=== PATIENT | female | born 1970 | race Caucasian/White ===

== ENCOUNTER → 2018-06-01 15:01 | Outpatient (CLI) | payer BC, SELFPAY ==
--- NOTE | 2018-06-01 15:03 | BI_ITS ---
MAMMOGRAPHY - BILATERAL SCREENING REASON FOR EXAM: Female, 48 years old. Routine annual screening examination. PERTINENT HISTORY: Non-contributory. Five-year history of a possible right breast lump. TECHNIQUE: Digital bilateral breast donna (3D mammographic acquisition) in the CC and MLO projections. 2-D mediolateral oblique (MLO) and craniocaudad (CC) views of both breasts were obtained. CAD: Full Field Digital Mammography with Computer Added Detection was performed. COMPARISON: Comparison is made with prior study dated September 25, 2016 and September 24, 2015. FINDINGS: Breast Composition: There are scattered areas of fibroglandular density. There are no dominant masses or suspicious calcifications. Stable appearance of the bilateral axial lymph nodes. No other significant abnormalities are identified. There has been no significant change since the prior study. BI/SCREENING MAMM (CAD), BILAT IMPRESSION: Stable bilateral screening mammogram. Yearly follow-up mammogram recommended. (A) ASSESSMENT CATEGORY: BIRADS Category 2: Benign. A letter regarding these results will be sent to the patient by the facility within 30 days. Approximately 10% of breast cancers are not detected by mammography. A normal mammogram should not delay biopsy of a clinically suspicious abnormality. [id number] Electronically Signed: Antoni Benites MD at 8:14 EDT Tel [phone], Service support ,
== END ==
PROVIDERS: Family Provider Internal Medicine; PCP Internal Medicine; Referring Provider Internal Medicine; Visit Provider Internal Medicine
DX: Z12.31 Encounter for screening mammogram for malignant neoplasm of breast (principal)
CPT/HCPCS: 77063; 77067

== ENCOUNTER 2019-10-17 09:25 | Observation (INO) | payer BC, SELFPAY ==
[2019-10-17] VITALS (7 sets, daily range): BP systolic 134–167; BP diastolic 80–104; PULSE 72–87; RESP 14–18; TEMP 36.2–36.9; O2SAT 93–98; BMI 46.0
--- NOTE | 2019-10-17 09:43 | ED.DCSUM_ITS ---
History of Present Illness Chief Complaint: Abd Pain Informant: Patient Narrative: Patient states for the past 3 weeks she has had a left flank pain that is gradually involved her abdomen. She notes mostly left-sided abdominal pain but states the whole abdomen hurts. When asked to describe the pain she states big fucking pain and does not wish me to palpate the abdomen. She denies any fevers. She has had vomiting today. She notes her urine was more yellow yesterday than to be expected. She notes she has very irregular bowel movements but no history of diverticulitis or colitis. No history of small bowel obstruction. She has a history of kidney stones. Back pain is constant and does not exhibit radicular symptoms. No midline pain. Past Medical History - Allergies and Home Meds Allergies/Adverse Reactions: Allergies niacin Allergy (Verified 10/17/19 09:28) Hives Surgical History: hysterectomy Smoking Status: Former smoker Review of Systems General: Denies: Chills, Fever, Sweats Eyes: Denies: Visual changes - bilaterally, Diplopia ENT: Denies: Rhinorrhea, Sore throat Cardiovascular: Denies: Chest pain, Palpitations Respiratory: Denies: Dyspnea, Cough, Dyspnea on exertion Gastrointestinal: Reports: Abdominal pain, Nausea, Vomiting, Constipation. Denies: Diarrhea, Melena, Hematochezia Genitourinary: Denies: Dysuria, Hematuria, Frequency Musculoskeletal: Reports: Back pain. Denies: Extremity Pain Skin: Denies: Rash, Wounds Neurological: Denies: Headache, Weakness, Numbness Physical Exam Vital Signs/Narrative: Vital Signs Temp Pulse Resp BP Pulse Ox 10/17/19 09:26 97.2 F L 73 18 165/88 H 98 Inital Vital Signs reviewed: Yes General: Well nourished, Well developed, No Acute Distress Head: Normocephalic, Atraumatic Eyes: Perrl, EOMI ENT: Moist mucous membranes, No rhinorrhea Neck: Supple, Nontender Cardiovascular: Regular rate, Regular rhythm, No murmurs Respiratory: No distress, CTA bilaterally, Chest nontender Abdomen: Soft, Nondistended, Normal bowel sounds, Tender, Guarding Back: CVA tenderness Extremities: Nontender, No edema Skin: Normal color, No rash Neurological: Alert, Oriented x3, Cranial nerves II-XII grossly intact, Normal Strength, Normal Sensation Psychological: Normal affect, Normal Mood Diagnostic/Tx/Re-eval - Medical Decision Making Patient received pain and nausea medication. White count returns at 11.9. Urinalysis 25-50 red cells 1+ bacteria and calcium oxalate crystals noted. CT demonstrates a proximal 8 mm left ureteral stone. I spoke with on-call urology and the plan is admission ED Disposition - Plan for ED Patient: Disposition: Acute [facility] Diagnosis: Left ureteral calculus
[2019-10-17] MEDS: 0.9% Normal Saline 1,000 ML 1000 ML IV (09:57)
[2019-10-17] MEDS: Morphine 4 MG/ML Syringe IV (09:57)
[2019-10-17] MEDS: Ondansetron 4 MG/2 ML Vial IV ×2 (09:58→21:16)
[2019-10-17 10:03] LABS: Absolute Neutrophil Count 9.4 X10^3/uL (2.0-7.7); Basophil# 0.03 X10^3/uL; Basophil% 0.3 % (0-1); Eosinophil# 0.14 X10^3/uL; Eosinophils% 1.2 % (0-5); Hematocrit 47.6 % (37-47); Hemoglobin 16.1 g/dL (12.0-15.0); Lymphocyte % 13.4 % (19-41); Mean Corp Hgb Conc 33.8 g/dL (32-36); Mean Corpuscular Hgb 29.4 pg (27.0-32.0); Monocyte# 0.66 X10^3/uL; Monocyte% 5.5 % (0-10); NRBC Flagged by Analyzer 0 % (0-5); Neutrophil # 9.43 X10^3/uL (2.7-7.7); Neutrophil % 79.1 % (47-70); Platelet Count 296 K/mm3 (150-450); RBC Distribution Width CV 12.4 % (11.6-14.6); RBC Distribution Width SD 39.5 fl (35.1-43.9); Red Blood Count 5.47 M/mm3 (4.2-5.4); White Blood Count 11.9 K/mm3 (4.4-11.0)
[2019-10-17 10:44] LABS: AST(SGOT) 31 U/L (15-37); Alanine Aminotransfer ALT/SGPT 60 U/L (13-56); Albumin, Serum 3.9 g/dL (3.2-5.0); Alkaline Phosphatase 103 U/L (45-117); BUN 17 mg/dL (7-18); Calcium,Total 9.5 mg/dL (8.5-10.1); Chloride 107 mmol/L (98-107); EST Glomerular Filtration Rate 71 mL/min (>60); Est Glom Filt Rate - Afr Amer 86 mL/min (>60); Estimated Creatinine Clearance 61.86 ml/min; Globulin 3.9 g/dL (2.2-4.2); Glucose 166 mg/dL (74-106); Lipase 99 U/L (73-393); Potassium 3.8 mmol/L (3.5-5.1); Protein, Total 7.8 g/dL (6.4-8.2); Sodium Level 140 mmol/L (136-145)
[2019-10-17 10:45] LABS: Anion Gap 5 (5-15)
--- NOTE | 2019-10-17 11:18 | CT_ITS ---
STUDY: CT ABDOMEN AND PELVIS WITHOUT CONTRAST REASON FOR EXAM: Female, 49 years old. LEFT FLANK PAIN RADIATION DOSAGE (If Supplied By Facility): CTDIvol = ( 24.18 ) mGy, DLP = ( 1262.47 ) mGycm TECHNIQUE: Transaxial images were obtained from the dome of the diaphragm to the symphysis pubis without oral contrast, and without intravenous contrast. Sagittal and coronal images were reconstructed. Individualized dose optimization techniques were used for this CT. COMPARISON: Comparison is made with prior study dated March 07, 2013. FINDINGS: The visualized lung bases are unremarkable. The visualized portions of the heart are within normal limits. There is decreased attenuation of the liver consistent with steatosis. Hepatomegaly. Normal gallbladder and extrahepatic biliary system. Normal spleen. Normal pancreas. There is mild hyperplasia of the left adrenal gland. Normal right kidney. Mild to moderate degree of left hydronephrosis due to a 7.5 mm calculus at the proximal aspect of the left ureter. Normal visualized stomach. Is evidence of a surgical anastomosis in the mid lower small bowel loops. There are multiple scattered diverticula consistent with diverticulosis. The appendix is visualized and appears normal. There is scattered atherosclerotic calcification of the abdominal aorta, without a demonstrated aneurysm. Normal inferior vena cava. There is borderline retroperitoneal lymphadenopathy with enlarged nodes no greater than 10mm in the short axis diameter. Normal urinary bladder. There is absence of the uterus consistent with a prior hysterectomy. Normal abdominal wall. Normal osseous structures. CT/Abdomen/Pelvis without Cont IMPRESSION: 7.5 mm conquest in the proximal portion of the left ureter causing mild degree of left hydronephrosis. Electronically Signed: Antoni Benites, at 12:32 EDT , Service support ,
[2019-10-17 11:25] LABS: Color, Urine Yellow (Yellow); Glucose, Dipstick Normal (Normal); Ketone-Dipstick 5 mg/dl (Negative); Leukocyte Esterase-Dipstick 25 /ul (Negative); Nitrite-Dipstick Negative (Negative); Occult Blood-Urine 250 /ul (Negative); Protein-Dipstick 100 mg/dl (Negative); Urine Bilirubin Dipstick Negative (Negative); Urine Clarity Sl. Cloudy (Clear); Urine Urobilinogen 1 mg/dl (Normal)
[2019-10-17 11:37] LABS: Bacteria 1+ /hpf (None Seen); Calcium Oxalate Crystals Ur 1+ /hpf (<or=2+); Mucous, Urine RARE /hpf (<or=2+); Red Blood Cells-Urine 25-50 SEEN /hpf (0-5); Squamous Epithelial Cells - UA 0-5 SEEN /hpf (5-10); White Blood Cells 0-5 SEEN /hpf (0-5)
--- NOTE | 2019-10-17 13:44 | NURSING ---
[address] P[address] COBB [id number] COBB RETURNED CALL
--- NOTE | 2019-10-17 13:55 | NURSING ---
MED SURG OBS REZA LEFT URETEROLITHIASIS
[2019-10-17 16:35] LABS: Bedside Glucose 155 mg/dL (70-110)
[2019-10-17] MEDS: 0.9% Saline Lock 10 ML Syringe IV ×2 (17:22→21:16)
[2019-10-17] MEDS: metFORMIN HCl 500 MG Tablet PO (17:22)
[2019-10-17] MEDS: Cefazolin 1 GM/50 ML BAG IV ×2 (17:22→22:32)
--- NOTE | 2019-10-17 17:48 | PCM.HP.STD ---
Problem List (1) Left ureteral calculus Status: Acute History of Present Illness Date of Admission: 10/17/19 Chief Complaint: left flank pain The patient is a 49 year old F with a remote history of nephrolithiasis. She began to have significant low back pain approximately 3 weeks ago. She reports that Wednesday, which was 3 days ago, she had significant left-sided flank discomfort. She thought it was related to her constipation. Eventually the pain dissipated. It was not associated with fever or chills, hematuria nausea or vomiting at that time. She was pain-free for [address] her [address] into work this morning she developed severe pain and turned around and drove home. Her family brought her to the emergency room. On the way to the emergency room she was hot and cold with chills. She was diagnosed with a proximal left ureteral calculus with hydronephrosis by CT scan in the emergency room. Past Medical History Medical History: Medical History (Last Reviewed 10/17/19 @ 17:[address] Snehal Fulton MD) Type 2 diabetes mellitus (Chronic) E11.9 Allergies niacin Allergy (Verified 10/17/19 09:28) Hives Home Medications: Ambulatory Orders Medication Instructions Recorded Atorvastatin Calcium [Lipitor] 20 mg PO QHS 10/17/19 Fenofibrate,Micronized 134 mg PO DAILY 10/17/19 [Fenofibrate] Levothyroxine Sodium [Synthroid] 25 mcg PO DAILY 10/17/19 Levothyroxine Sodium [Synthroid] 200 mcg PO DAILY 10/17/19 Lisinopril 20 mg PO DAILY 10/17/19 Metformin HCl 500 mg PO BID 10/17/19 Surgical History: hysterectomy Smoking Status: Former smoker Review of Systems Constitutional: Reports: Chills Eyes: Denies: Vision Change HEENT: Denies: Visual Changes Cardiovascular: Denies: Chest Pain Respiratory: Denies: Shortness of Breath Gastrointestinal: Reports: Abdominal Pain, Constipation, Nausea, Vomiting Genitourinary: Denies: Dysuria, Urgency Musculoskeletal: Denies: Muscle pain Skin: Denies: Rash VTE Information - Inpt Only VTE Present on Admission: Yes VTE Mechan Device Prophylaxis: SCD's VTE Pharm Prophylaxis ordered?: No Reason prophylaxis not ordered:: Treatment Not Indicated Patient Problems: Active and Suspected Problems Left ureteral calculus (Acute) - Physical Exam Vitals/I&O's: Vital Signs Temp Pulse Resp BP Pulse Ox 98.2 F 75 18 137/80 H 96 10/17/19 15:02 10/17/19 15:02 10/17/19 15:02 10/17/19 15:02 10/17/19 15:02 Oxygen Delivery Method Room Air Weight: 117.8 kg Body Mass Index (BMI) 46.0 Intake and Output for Last 24 Hours 10/15/19 10/16/19 10/17/19 23:59 23:59 23:59 Intake Total 1000 / 1000 Balance 1000 / 1000 General: Alert, Oriented x3, Cooperative, No apparent distress HEENT: Atraumatic, Normocephalic Oral: Moist Mucosa Neck: Supple Lungs: Normal air movement Cardiovascular: Regular rate Abdomen: Soft, Non-Distended Skin: No rashes Musculoskeletal: No Muscle Wasting Neurological: Cranial nerves II-XII grossly intact Psych/Mental Status: Normal Affect Laboratory Results 10/17/19 09:50: WBC 11.9 H, RBC 5.47 H, Hgb 16.1 H, Hct 47.6 H, MCV 87.0, MCH 29.4, MCHC 33.8, RDW Std Deviation 39.5, RDW Coeff of Doug 12.4, Plt Count 296, MPV 9.0, Immature Gran % (Auto) 0.500, Neut % (Auto) 79.1 H, Lymph % (Auto) 13.4 L, [place] % (Auto) 5.5, Eos % (Auto) 1.2, Baso % (Auto) 0.3, Absolute Neuts (auto) 9.4 H, Absolute Lymphs (auto) 1.60, Nucleated RBC % 0 10/17/19 09:50: Sodium 140, Potassium 3.8, Chloride 107, Carbon Dioxide 28.0, Anion Gap 5, BUN 17, Creatinine 0.90, Estim Creat Clear Calc 61.86, Est GFR (MDRD) Af Amer 86, Est GFR (MDRD) Non-Af 71, BUN/Creatinine Ratio 19.0, Glucose 166 H, Calcium 9.5, Total Bilirubin 0.90, AST 31, ALT 60 H, Alkaline Phosphatase 103, Total Protein 7.8, Albumin 3.9, Globulin 3.9, Albumin/Globulin Ratio 1.0, Lipase 99 10/17/19 11:06: Urine Color Yellow, Urine Clarity Sl. Cloudy, Urine pH 6.0, Ur Specific Orr 1.020, Urine Protein 100 H, Urine Glucose (UA) Normal, Urine Ketones 5 H, Urine Occult Blood 250 H, Urine Nitrite Negative, Urine Bilirubin Negative, Urine Urobilinogen 1 H, Ur Leukocyte Esterase 25 H, Urine RBC 25-50 SEEN, Urine WBC 0-5 SEEN, Ur Squamous Epith Cells 0-5 SEEN, Calcium Oxalate Crystal 1+, Urine Bacteria 1+, Urine Mucus RARE 10/17/19 16:28: POC Glucose 155 H Current Medications Hydrocodone Bitart/Acetaminophen (Prentice 5mg-325mg) 1 - 2 tablet PO Q6H PRN PRN PRN Reason: Pain Score 1-5/10 Atorvastatin Calcium (Lipitor) 20 mg PO QHS [facility] Sodium Chloride () 250 mls @ 15 mls/hr IV .[id number] PRN PRN Reason: Saline Flush Sodium Chloride () 250 mls @ 15 mls/hr IV .[id number] PRN PRN Reason: Additional IVPB Infusion Cefazolin Sodium () 1 gm in 50 mls @ 150 mls/hr IV Q8 [facility] Last Admin: 10/17/19 17:22 Dose: 150 mls/hr Documented by: Ketorolac Tromethamine (Toradol (Bkc)) 15 mg IV Q6H PRN PRN PRN Reason: Pain Score 1-10/10 Stop: 10/19/19 15:19 Levothyroxine Sodium (Synthroid) 25 mcg PO DAILY@0600 [facility] Levothyroxine Sodium (Synthroid) 200 mcg PO DAILY@0600 [facility] Lisinopril (Zestril) 20 mg PO DAILY [facility] Metformin HCl (Glucophage) [facility] Last Admin: 10/17/19 17:22 Dose: 500 mg Documented by: Morphine Sulfate () 3 mg IV Q3H PRN PRN PRN Reason: Pain Score 6-10/10 Ondansetron HCl (Zofran) 4 mg IV Q8H PRN PRN Reason: Nausea Sodium Chloride () 10 - 40 ml IV UD PRN PRN Reason: SALINE FLUSH Last Admin: 10/17/19 17:22 Dose: 10 ml Documented by: Assessment/Plan All Active Problems Left ureteral calculus (Acute) For cystoscopy and left ureteral stent insertion tomorrow We will proceed with extracorporal shockwave lithotripsy as an outpatient for definitive stone management Continue supportive care and pain management
[2019-10-17] MEDS: Morphine 4 MG/ML Syringe 3 MG IV (21:17)
[2019-10-17] MEDS: Atorvastatin Calcium 20 MG Tablet PO (21:23)
[2019-10-17] MEDS: Lisinopril 20 MG Tablet PO (21:37)
[2019-10-17 21:45] LABS: Bedside Glucose 155 mg/dL (70-110)
[2019-10-18] VITALS (10 sets, daily range): BP systolic 97–179; BP diastolic 68–97; PULSE 68–77; RESP 16–18; TEMP 36.5–37.1; O2SAT 92–98; BMI 46.0
[2019-10-18] MEDS: Cefazolin 1 GM/50 ML BAG IV ×2 (05:46→13:27)
--- NOTE | 2019-10-18 06:00 | EKG12_ITS ---
Test Reason : AM EKG Blood Pressure : / mmHG Vent. Rate : 071 BPM Atrial Rate : 071 BPM P-R Int : 172 ms QRS Dur : 088 ms QT Int : 398 ms P-R-T Axes : 024 051 066 degrees QTc Int : 432 ms Normal sinus rhythm Low voltage QRS Borderline ECG When compared with ECG of 09-FEB-2013 22:29, No significant change was found Confirmed by EMILIA LUU ([id number]), pharmacy technician infusion JIMMIE RODRIGUEZ ([id number]) on 10/19/2019 7:39:17 AM Referred By: REZA Confirmed By:EMILIA LUU
[2019-10-18 06:01] LABS: Bedside Glucose 127 mg/dL (70-110)
[2019-10-18] MEDS: Lactated Ringers 1,000 ML 100 ML IV (07:14)
[2019-10-18 07:20] LABS: Thyroid Stim Hormone (TSH) 2.24 uIU/mL (0.358-3.74)
--- NOTE | 2019-10-18 07:54 | OP.PCM_ITS ---
Problem List (1) Left ureteral calculus Status: Acute Report of Operation Date of Procedure: 10/18/19 Pre-Operative Diagnosis: left ureteral calculus Post-Operative Diagnosis: same Surgery/Procedure Performed:: cystoscopy and left ureteral stent insertion Type of Anesthesia:: MAC Description of Procedure: The patient is a 49-year-old female who presented to the emergency room with uncontrolled left flank pain. A proximal large ureteral calculus with obstruction was identified on CT scan. She now presents for insertion of a left ureteral stent. Informed consent was obtained. Patient was taken to the operating room and placed on the operating room table. Anesthesia monitored the head, neck, airway, IV access and vital signs throughout the case. Once anesthesia was appropriately administered the patient was placed into dorsal lithotomy position was prepped and draped in usual sterile fashion. The cystoscope was inserted through the urethra under direct visualization into the urinary bladder. The bladder mucosa was visualized in its entirety and there were no masses areas of ulceration, erythema or foreign body. The left ureteral orifice was identified and intubated with a 0.035 Glidewire which curled within the renal pelvis visualized on fluoroscopy. A 6 Marshallese 24 cm double-J stent was then inserted over the Glidewire without difficulty. A good curl was achieved within the renal pelvis as well as the urinary bladder. Urine was seen extruding from the ureteral stent. The patient's bladder was then emptied and the cystoscope was removed. She was awakened and taken to the recovery room in good condition. There were no complications during the procedure. Grafts/Implants Used: 6x24 JJ stent - Complications none - Admit VTE Documentation VTE Present on Admission: Yes VTE Mechan Device Prophylaxis: SCD's VTE Pharm Prophylaxis ordered?: No Reason prophylaxis not ordered:: Treatment Not Indicated
--- NOTE | 2019-10-18 07:59 | DCINST_ITS ---
Discharge Diet: Carb Control Diet Discharge Activity: Return to Normal Activity, May not drive while taking narcotic pain medications. May resume sexual activity in: 2 weeks Call your doctor if you observe: Fever of 101 or Higher, Inability to urinate, Inability to have a bowel movement, Uncontrolled pain Allergies/Adverse Reactions: Allergies niacin Allergy (Verified 10/17/19 09:28) Hives Medications to take at Discharge Atorvastatin Calcium [Lipitor] 20 mg PO QHS 10/17/19 Fenofibrate,Micronized [Fenofibrate] 134 mg PO DAILY 10/17/19 Levothyroxine Sodium [Synthroid] 25 mcg PO DAILY 10/17/19 Levothyroxine Sodium [Synthroid] 200 mcg PO DAILY 10/17/19 RX: Lisinopril 20 mg PO DAILY 10/17/19 RX: Metformin HCl 500 mg PO BID 10/17/19 Primary Care Physician: Citlalli Cox DO [Primary Care Provider] - Test Results: Test results from this visit will be discussed in further detail at your follow- up appointment, if applicable. Please Follow Up With: Snehal Fulton MD When: call office for instructions Proposed Discharge Date: 10/18/19
[2019-10-18] MEDS: Lidocaine Jelly 2% 20 ML Syringe (URO-JET) 20 APPLIC (08:12)
[2019-10-18 08:32] LABS: Hemoglobin A1c 6.6 % (4.2-6.3)
[2019-10-18 08:45] LABS: Bedside Glucose 111 mg/dL (70-110)
[2019-10-18] MEDS: Phenazopyridine 95 MG Tablet 190 MG PO ×2 (09:07)
[2019-10-18] MEDS: metFORMIN HCl 500 MG Tablet PO (10:04)
[2019-10-18] MEDS: 0.9% Saline Lock 10 ML Syringe IV (10:04)
[2019-10-18] MEDS: Morphine 4 MG/ML Syringe 3 MG IV (10:04)
--- NOTE | 2019-10-18 10:10 | NURSING ---
Pt arrived from PACU, she is assisted immediately to the bathroom and voids. She is asking multiple questions all at the same time. Wanting to eat, wanting to go home will this burn when she goes home. She is notified that she can order her diet and its a diabetic controlled diet. She responds what's that mean? Nurse educates pt this these are the choices of food she should be eating. She is medicated with 3 mg of morphine for pain. When nurse returns she is laying in bed eating. She is advised to sit up to eat she states she is quiet comfortably eating in the laying position.
[2019-10-18] MEDS: Insulin Lispro 100 UNIT/ML INSULN.PEN SC (11:23)
[2019-10-18 11:36] LABS: Bedside Glucose 172 mg/dL (70-110)
[2019-10-18] MEDS: HYDROcodone Bitartrate/Apap 5/325 Tablet PO (12:20)
== END 2019-10-18 15:47 | disposition home or self-care (01) ==
LOC: ED 10:37 → MS3 15:33
PROVIDERS: Anesthesiology; Admitting Provider Urology; Emergency Provider Emergency Medicine; PCP Internal Medicine; Visit Provider Urology
PROC: 0TJ98ZZ Inspection of Ureter, Via Natural or Artificial Opening Endoscopic (ICD-10-PCS; CPT 52352; principal; 2019-10-18 07:50)
DX: N13.2 Hydronephrosis with renal and ureteral calculous obstruction (principal); Z87.442 Personal history of urinary calculi; Z79.899 Other long term (current) drug therapy; Z87.891 Personal history of nicotine dependence; E11.9 Type 2 diabetes mellitus without complications; Z79.84 Long term (current) use of oral hypoglycemic drugs; I10 Essential (primary) hypertension
CPT/HCPCS: 00910; 52332; 36415; 74176; 76000; 80053; 81001; 82962; 83036; 83690; 84443; 85025; 87086; 87088; 93005; 96365; 96366; 96375; 96376; 99218; 99282; J7030; J7050; J7120; A4216; C2617; G0378; J2405

== ENCOUNTER → 2019-10-25 11:17 | Outpatient (CLI) | payer BC, SELFPAY ==
[2019-10-18 06:43] VITALS: BMI 46.0
--- NOTE | 2019-10-25 11:24 | US_ITS ---
STUDY: RENAL ULTRASOUND - COMPLETE REASON FOR EXAM: Female, 49 years old. URETERAL STONE TECHNIQUE: Ultrasound evaluation of the kidneys was performed with real-time and static stanley-scale imaging. COMPARISON: None. FINDINGS: RIGHT KIDNEY: Normal location of the right kidney, which is normal in size. The right kidney measures 13.7 cm x 6.5 cm x 6.3 cm. There is a normal cortex of the right kidney. The renal cortex measures 2.0 cm. There is no right renal mass or cyst. There is a 7 mm x 8 mm x 6 mm calculus in the midpole. There is no right hydronephrosis. DISTAL RIGHT URETER: There is non-visualization of the distal right ureter. There is no demonstrated right ureterovesical junction calculus. There is a visualized right ureteral jet. LEFT KIDNEY: Normal location of the left kidney, which is normal in size. The left kidney measures 11.9 cm x 5 cm x 6.1 cm. There is a normal cortex of the left kidney. The renal cortex measures 2.0 cm. There is no left renal mass or cyst. Questionable 1 cm x 0.8 cm x 0.8 cm calculus in the lower pole. There is no left hydronephrosis. DISTAL LEFT URETER: There is non-visualization of the distal left ureter. There is no demonstrated left ureterovesical junction calculus. There is no demonstrated left ureteral jet. BLADDER: The bladder is not adequately distended for assessment. US/Kidney and Bladder IMPRESSION: Small bilateral intrarenal calculi. Electronically Signed: Antoni Benites, at 12:35 EDT , Service support ,
== END ==
PROVIDERS: PCP Internal Medicine; Referring Provider Urology; Visit Provider Urology
DX: N20.1 Calculus of ureter (principal)
CPT/HCPCS: 76770

== ENCOUNTER 2019-10-27 07:18 | Day surgery (SDC) | payer BC, SELFPAY ==
[2019-10-18 06:43] VITALS: BMI 46.0
--- NOTE | 2019-10-25 12:30 | RAD_ITS ---
STUDY: X-RAY - ABDOMEN/PELVIS REASON FOR EXAM: Female, 49 years old. Known kidney stone on left side; pre op slew TECHNIQUE: Single AP view of the abdomen / pelvis. COMPARISON: None. FINDINGS: Normal visualized lung bases. There is an unremarkable bowel gas pattern. A left-sided double-J stent catheter is seen. There is an 8.8 mm calculus in the proximal portion of the left ureter. Normal soft tissue structures. Normal visualized osseous structures. RAD/Abdomen Single View IMPRESSION: A left-sided double-J stent catheter is seen. There is a 8.8 mm calculus in the proximal left ureter. Electronically Signed: Antoni Benites, at 13:14 EDT , Service support ,
[2019-10-27] VITALS (8 sets, daily range): BP systolic 136–159; BP diastolic 78–98; PULSE 65–85; RESP 14–16; TEMP 36.3–36.7; O2SAT 93–97; BMI 44.9
[2019-10-27] MEDS: Lactated Ringers 1,000 ML 100 ML IV ×2 (07:52→10:35)
[2019-10-27 08:36] LABS: Bedside Glucose 133 mg/dL (70-110)
[2019-10-27] MEDS: Cefazolin 2 GM in 0.9% Normal Saline 100 ML IV (09:04)
--- NOTE | 2019-10-27 10:28 | PCM.OPRPT ---
Problem List (1) Left ureteral calculus Status: Acute Report of Operation Date of Procedure: 10/27/19 Pre-Operative Diagnosis: left ureteral calculus Post-Operative Diagnosis: same Surgery/Procedure Performed:: left ureteral extracorporeal shockwave lithotripsy Type of Anesthesia:: General Description of Procedure: The patient is a 49-year-old female with a left proximal ureteral calculus. She underwent a cystoscopy and left ureteral stent for obstruction and now presents for definitive treatment of her stone. All risks, benefits and alternatives were discussed. Informed consent was obtained. The patient was taken to the operating room and placed on the operating room table. Anesthesia monitored the head, neck, airway, IV access and vital signs throughout the case. Once anesthesia was appropriately administered, the patient was aligned with the lithotripter. The stone was easily identified. It was broken into small fragments and the stone was no longer visible. There were no complications during the procedure. She was then awakened and taken to the recovery room in good condition. Grafts/Implants Used: none - Complications none - Admit VTE Documentation VTE Present on Admission: Yes VTE Mechan Device Prophylaxis: SCD's VTE Pharm Prophylaxis ordered?: No Reason prophylaxis not ordered:: Treatment Not Indicated
--- NOTE | 2019-10-27 10:35 | DCINST_ITS ---
Discharge Diet: Carb Control Diet Discharge Activity: May not drive while taking narcotic pain medications. May resume sexual activity in: 2 weeks Call your doctor if you observe: Fever of 101 or Higher, Inability to urinate, Inability to have a bowel movement Allergies/Adverse Reactions: Allergies niacin Allergy (Verified 10/27/19 07:30) Hives Medications to take at Discharge Atorvastatin Calcium [Lipitor] 20 mg PO QHS 10/17/19 Fenofibrate,Micronized [Fenofibrate] 134 mg PO DAILY 10/17/19 Levothyroxine Sodium [Synthroid] 25 mcg PO DAILY 10/17/19 Levothyroxine Sodium [Synthroid] 200 mcg PO DAILY 10/17/19 Lisinopril 20 mg PO DAILY 10/17/19 Metformin HCl 500 mg PO BID 10/17/19 Cephalexin [Keflex] 500 mg PO Q12 3 Days #6 cap 10/27/19 The following prescriptions were given: Cephalexin [Keflex] 500 mg PO Q12 3 Days #6 cap Transmission Status: Pending to [facility] Primary Care Physician: Citlalli Cox DO [Primary Care Provider] - Test Results: Test results from this visit will be discussed in further detail at your follow- up appointment, if applicable. Please Follow Up With: Snehal Fulton MD When: call office for appt Proposed Discharge Date: 10/27/19
[2019-10-27 10:46] LABS: Bedside Glucose 121 mg/dL (70-110)
--- NOTE | 2019-11-20 10:35 | PCM.HP.STD ---
Problem List (1) Left ureteral calculus Status: Acute History of Present Illness Date of Admission: 10/27/19 Chief Complaint: left flank pain The patient is a 49 year old F with an indwelling left ureteral stent secondary to an obstructing left ureteral calculus. She now presents for definitive management of her stone with extracorporal shockwave lithotripsy. She currently has no evidence of infection including fever, chills, nausea or vomiting. She does have discomfort secondary to her stent. Informed consent was obtained following a discussion of risks benefits and alternatives. Past Medical History Past Medical History (Chronic Problems): Chronic Problems (Last Reviewed 10/17/19 @ 17:[address] Snehal Fulton MD) Type 2 diabetes mellitus (Chronic) Medical History: Medical History (Last Reviewed 11/20/19 @ 10:[address] Snehal Fulton MD) Type 2 diabetes mellitus (Chronic) E11.9 Allergies niacin Allergy (Verified 10/27/19 07:30) Hives Home Medications: Ambulatory Orders Medication Instructions Recorded Atorvastatin Calcium [Lipitor] 20 mg PO QHS 10/17/19 Fenofibrate,Micronized 134 mg PO DAILY 10/17/19 [Fenofibrate] Levothyroxine Sodium [Synthroid] 25 mcg PO DAILY 10/17/19 Levothyroxine Sodium [Synthroid] 200 mcg PO DAILY 10/17/19 Lisinopril 20 mg PO DAILY 10/17/19 Metformin HCl 500 mg PO BID 10/17/19 Surgical History: hysterectomy Smoking Status: Former smoker Tobacco Use: Non-smoker Review of Systems Constitutional: Denies: Anorexia, Fever Eyes: Denies: Vision Change HEENT: Denies: Difficulty Swallowing, Visual Changes Cardiovascular: Denies: Chest Pain, Chest Pressure Respiratory: Denies: Cough, Shortness of Breath Gastrointestinal: Reports: Abdominal Pain. Denies: Nausea, Vomiting Genitourinary: Reports: Frequency, Hematuria, Urgency. Denies: Dysuria Gynecological: Denies: Breast symptoms Musculoskeletal: Denies: Muscle pain Skin: Denies: Wounds Neurological: Denies: Difficulty swallowing Endocrine: Denies: Change in Body Habitus VTE Information - Inpt Only VTE Present on Admission: Yes VTE Mechan Device Prophylaxis: SCD's VTE Pharm Prophylaxis ordered?: No Reason prophylaxis not ordered:: Treatment Not Indicated - Physical Exam Vitals/I&O's: Vital Signs Temp Pulse Resp BP Pulse Ox 97.3 F L 76 16 139/78 H 94 10/27/19 12:15 10/27/19 12:15 10/27/19 12:15 10/27/19 12:15 10/27/19 12:15 Oxygen Flow Rate (L/min) 2 Oxygen Delivery Method Room Air Weight: 114.9 kg Body Mass Index (BMI) 44.9 Finger Stick Blood Glucose 121 General: Alert, Oriented x3, Cooperative, No apparent distress HEENT: Atraumatic, Normocephalic Oral: Moist Mucosa Neck: Supple, Trachea Midline Lungs: Clear to auscultation, Normal air movement Cardiovascular: Regular rate, Regular Rhythm Abdomen: Soft, Non Tender, Non-Distended Extremities: No clubbing Skin: No rashes Musculoskeletal: No Muscle Wasting Neurological: Cranial nerves II-XII grossly intact Psych/Mental Status: Normal Affect Assessment/Plan All Active Problems (Last Reviewed 10/17/19 @ 17:[address] Snehal Fulton MD) Left ureteral calculus (Acute) Proceed with left ureteral extracorporal shockwave lithotripsy antibiotics and supportive care Stent out in the office after KUB
== END 2019-10-27 12:16 | disposition home or self-care (01) ==
LOC: SDC 07:19 → AC 07:21
PROVIDERS: PCP Internal Medicine; Referring Provider Urology; Visit Provider Urology
PROC: (CPT 50590; principal; 2019-10-27 08:45)
DX: N20.1 Calculus of ureter (principal); I10 Essential (primary) hypertension; E78.00 Pure hypercholesterolemia, unspecified; E06.9 Thyroiditis, unspecified; E11.9 Type 2 diabetes mellitus without complications; Z79.84 Long term (current) use of oral hypoglycemic drugs; Z79.899 Other long term (current) drug therapy; Z87.891 Personal history of nicotine dependence
CPT/HCPCS: 50590; 74018; 82962; J7120; J2405

== ENCOUNTER → 2019-10-30 12:03 | Outpatient (CLI) | payer BC, SELFPAY ==
[2019-10-27 07:37] VITALS: BMI 44.9
--- NOTE | 2019-10-30 12:07 | RAD_ITS ---
STUDY: X-RAY - ABDOMEN/PELVIS REASON FOR EXAM: Female, 49 years old. HX OF KIDNEY STONE ON THE LEFT WITH STENT PLACEMENT. STENT PLACED 2 WEEKS AGO. TECHNIQUE: Single AP view of the abdomen / pelvis. COMPARISON: Comparison is made with prior examination of October 25, 2019. FINDINGS: Normal visualized lung bases. There is a moderate amount of colonic fecal material. Stable appearance of the left double-J stent catheter. Persistent rounded calcification measuring 5.3 mm is seen overlying the transverse processes of the L3 vertebra on the left side. Normal soft tissue structures. Normal visualized osseous structures. RAD/Abdomen Single View IMPRESSION: Stable examination. Electronically Signed: Antoni Benites, at 12:48 EDT , Service support ,
== END ==
PROVIDERS: PCP Internal Medicine; Referring Provider Urology; Visit Provider Urology
DX: N20.1 Calculus of ureter (principal)
CPT/HCPCS: 74018

== ENCOUNTER → 2019-11-03 11:04 | Outpatient (CLI) | payer BC, SELFPAY ==
[2019-10-27 07:37] VITALS: BMI 44.9
--- NOTE | 2019-11-03 11:07 | RAD_ITS ---
STUDY: X-RAY - ABDOMEN/PELVIS REASON FOR EXAM: Female, 49 years old. KIDNEY STONE ON THE LEFT. STENT PLACED A COUPLE OF WEEKS. AND HAD AN ESWL PROCEDURE PER PATIENT. TECHNIQUE: Single AP view of the abdomen / pelvis. COMPARISON: Comparison is made with prior study dated October 30, 2019. FINDINGS: Normal visualized lung bases. There is an unremarkable bowel gas pattern. Once again, a left-sided double-J stent catheter is seen with the proximal tip in the left renal pelvis and distal tip in the left side of the bladder. The previously seen calcification in the left mid ureter as decreased further in size presently measuring 4.2 mm. Normal soft tissue structures. Normal visualized osseous structures. RAD/Abdomen Single View IMPRESSION: Stable left double-J stent catheter. Interval decrease in size of the previously seen left mid ureteral calculus presently measuring 4.2 mm. Electronically Signed: Antoni Benites, at 14:36 EDT , Service support ,
== END ==
PROVIDERS: PCP Internal Medicine; Referring Provider Urology; Visit Provider Urology
DX: N20.1 Calculus of ureter (principal)
CPT/HCPCS: 74018

== ENCOUNTER → 2019-11-10 12:01 | Outpatient (CLI) | payer BC, SELFPAY ==
[2019-10-27 07:37] VITALS: BMI 44.9
--- NOTE | 2019-11-10 12:03 | RAD_ITS ---
STUDY: X-RAY - ABDOMEN/PELVIS REASON FOR EXAM: Female, 49 years old. Ureteral calc -- urinary burning TECHNIQUE: Single AP view of the abdomen / pelvis. COMPARISON: Comparison is made with prior study dated November 03, 2019. FINDINGS: There is a moderate amount of colonic fecal material. Once again, there is evidence of a left-sided double-J stent catheter. Stable 4.2 mm calculus overlying the transverse process of the L3 vertebra on the left side. Normal soft tissue structures. Normal visualized osseous structures. RAD/Abdomen Single View IMPRESSION: Stable examination. Electronically Signed: Antoni Benites, at 13:35 EDT , Service support ,
== END ==
LOC: RAD.FUTURE 12:02 → MTRAD 12:02
PROVIDERS: PCP Internal Medicine; Referring Provider Urology; Visit Provider Urology
DX: N20.1 Calculus of ureter (principal)
CPT/HCPCS: 74018

== ENCOUNTER → 2019-11-24 12:51 | Outpatient (CLI) | payer BC, SELFPAY ==
[2019-10-27 07:37] VITALS: BMI 44.9
--- NOTE | 2019-11-24 12:52 | RAD_ITS ---
STUDY: X-RAY - ABDOMEN/PELVIS REASON FOR EXAM: Female, 49 years old. POST OP LEFT SIDE CALCULUS CHECK UP TECHNIQUE: Two AP supine views of the abdomen and pelvis. COMPARISON: None. FINDINGS: Normal visualized lung bases. There is a left ureter stent in good position. There is a stone in the mid left ureter measures 6 mm. There is an unremarkable bowel gas pattern. There is no demonstrated free abdominal air. The visualized liver, spleen and kidneys are grossly normal in size and morphology. Normal soft tissue structures. Normal visualized osseous structures. RAD/Abdomen Single View IMPRESSION: There is a left ureter stent in good position. There is a stone in the mid left ureter measures 6 mm. Electronically Signed: Yazmin Hawkins, at 14:43 EDT Tel , Service support ,
== END ==
PROVIDERS: PCP Internal Medicine; Referring Provider Urology; Visit Provider Urology
DX: N20.1 Calculus of ureter (principal)
CPT/HCPCS: 74018

== ENCOUNTER 2019-12-05 06:03 | Day surgery (SDC) | payer BC, SELFPAY ==
[2019-10-27 07:37] VITALS: BMI 44.9
[2019-12-05] VITALS (7 sets, daily range): BP systolic 117–143; BP diastolic 70–86; PULSE 71–92; RESP 14–16; TEMP 36.4–37.1; O2SAT 89–97; BMI 45.6
--- NOTE | 2019-12-05 | CALC_PTH ---
PATIENT: ERON LONG LOC: [facility] [place][id number] AGE/SX: 49/F ROOM: RE12/05/[address]: Dr. Snehal Fulton MD : 1970 BED: DIS: 12/05/2019 SPEC #: [id number] RECD: 12/05/19 12:31 STATUS: BEAR NEDA #: [id number] ZACH: 12/05/19 00:[address]: Snehal Fulton DEPT: SURGICAL PATHOLOGY RECD BY: Dieter Michaud ENTERED: 12/05/19 12:31 SP TYPE: Calculi OTHR DR: Dr. Citlalli Cox, Tissues: CALCULI Procedures: Surgery Specimen Level I HEADER OPERATION: Cystoscopy, left ureteroscopy, laser of stone, basket retrieval PRE-OP DIAGNOSIS: Left ureteral calculus TISSUE SUBMITTED: Urinary calculi GROSS DIAGNOSIS A fragment of stone, clinically left ureteral calculus, submitted entirely for analysis. SJ:marck 12/05/19 COMMENT The calculus is submitted in its entirety for chemical stone analysis. The results from this study will be reported separately. GROSS DESCRIPTION Received in fixative is one container labeled with the patient's name and designated calculi, urinary with photo. The specimen consists of a brownish fragment of stone measuring 0.6 x 0.5 x 0.3 cm. The entire specimen is submitted for stone analysis. / NUSRAT:marck 12/05/19 CPT: 58186
[2019-12-05] MEDS: Lactated Ringers 1,000 ML 100 ML IV (06:45)
--- NOTE | 2019-12-05 07:08 | PCM.HP.STD ---
Problem List (1) Left ureteral calculus Status: Acute (2) Type 2 diabetes mellitus Status: Chronic History of Present Illness Date of Admission: 12/05/19 Chief Complaint: left ureteral stone with pain The patient is a 49 year old F who has had 2 previous surgical interventions for a left ureteral calculus, and now presents for ureteroscopy and laser lithotripsy with stent change. Her pain has been increasing over the last few weeks due to the stone and the stent. Past Medical History Past Medical History (Chronic Problems): Chronic Problems (Last Reviewed 12/05/19 @ 07:[address] Snehal Fulton MD) Type 2 diabetes mellitus (Chronic) Medical History: Medical History (Last Reviewed 12/05/19 @ 07:[address] Snehal Fulton MD) Type 2 diabetes mellitus (Chronic) E11.9 Allergies niacin Allergy (Verified 10/27/19 07:30) Hives Home Medications: Ambulatory Orders Medication Instructions Recorded Atorvastatin Calcium [Lipitor] 20 mg PO QHS 10/17/19 Fenofibrate,Micronized 134 mg PO DAILY 10/17/19 [Fenofibrate] Levothyroxine Sodium [Synthroid] 25 mcg PO DAILY 10/17/19 Levothyroxine Sodium [Synthroid] 200 mcg PO DAILY 10/17/19 Lisinopril 20 mg PO DAILY 10/17/19 Metformin HCl 500 mg PO BID 10/17/19 Surgical History: hysterectomy, - - cystoscopy with stent insertion, extracorporeal shockwave lithotripsy Smoking Status: Former smoker Tobacco Use: Non-smoker Review of Systems Constitutional: Denies: Anorexia, Chills, Fever Eyes: Denies: Vision Change HEENT: Denies: Difficulty Hearing, Difficulty Swallowing Cardiovascular: Denies: Chest Pain, Chest Pressure, Chest Tightness Respiratory: Denies: Cough, Shortness of Breath Gastrointestinal: Reports: Abdominal Pain, Nausea Genitourinary: Reports: Hematuria, Urgency. Denies: Dysuria, Retention Musculoskeletal: Denies: Muscle pain Skin: Denies: Wounds Neurological: Denies: Balance problems Endocrine: Denies: Change in Body Habitus Hematologic/ Lymphatic: Denies: Petechiae VTE Information - Inpt Only VTE Present on Admission: Yes VTE Mechan Device Prophylaxis: SCD's VTE Pharm Prophylaxis ordered?: No Reason prophylaxis not ordered:: Treatment Not Indicated - Physical Exam Vitals/I&O's: Vital Signs Temp Pulse Resp BP Pulse Ox 97.5 F L 80 16 143/83 H 97 12/05/19 06:18 12/05/19 06:18 12/05/19 06:18 12/05/19 06:18 12/05/19 06:18 Oxygen Delivery Method Room Air Weight: 117 kg Body Mass Index (BMI) 45.6 Finger Stick Blood Glucose 121 General: Alert, Oriented x3, Cooperative HEENT: Atraumatic, Normocephalic Oral: Moist Mucosa Neck: Supple, Trachea Midline Lungs: Normal air movement Cardiovascular: Regular rate Abdomen: Soft, Non-Distended Extremities: No cyanosis Skin: No rashes Musculoskeletal: No Muscle Wasting Neurological: Cranial nerves II-XII grossly intact Psych/Mental Status: Normal Affect Current Medications Cefazolin Sodium 2 gm/ Sodium (Chloride) 110 mls @ 150 mls/hr IV PREOP ONE Stop: 12/05/19 07:43 Lactated Ringer's () 1,000 mls @ 100 mls/hr IV .Q10H DEZ Last Admin: 12/05/19 06:45 Dose: 100 mls/hr Documented by: Assessment/Plan All Active Problems (Last Reviewed 12/05/19 @ 07:[address] Snehal Fulton MD) Left ureteral calculus (Acute) cystoscopy, left ureteroscopy laser lithotripsy and left ureteral stent change antibiotics, supportive care stent out in the office the risks, benefits and alternatives were discussed, including but not limited to anesthesia, infection, bleeding and injury, COVID-19 infection, and she agrees to proceed. Essential Procedure Criteria Procedure Essential: Yes Criteria Note: On 10/24/2019 the [place] Department of Health ([facility]) Public Order signed by [facility] Director Mirna Saenz M.D., regarding the Management of Non-Essential Surgeries and Procedures for the purpose of preserving Personal Protective Equipment (PPE) and critical hospital capacity and resources within [place] went into effect as of 10/25/2019 at 5:00PM. According to the [facility] Public Order: This action will remain in full force and effect until the State of Emergency declared by the Governor no longer exists or the Director of the [facility] rescinds or modifies this Order.. This [facility] order stated all non-essential or elective surgeries and procedures that utilize PPE should be delayed unless there is undue risk to the current or future health of a patient. After reviewing the aforementioned [facility] Public Order and the patients clinical case, I have determined that the scheduled procedure meets the criteria to go forward. Risk to Patient if Procedure Delayed: Risk of rapidly worsening to severe symptoms - increasing pain with nausea, risk for infection and injury to kidney
[2019-12-05 07:15] LABS: Bedside Glucose 146 mg/dL (70-110)
[2019-12-05] MEDS: Cefazolin 2 GM in 0.9% Normal Saline 100 ML IV (07:28)
--- NOTE | 2019-12-05 08:23 | OP.PCM_ITS ---
Problem List (1) Left ureteral calculus Status: Acute (2) Type 2 diabetes mellitus Status: Chronic Report of Operation Date of Procedure: 12/05/19 Pre-Operative Diagnosis: left ureteral calculus Post-Operative Diagnosis: same Surgery/Procedure Performed:: cystoscopy, left ureteroscopy, holmium laser lithotripsy, stone basket extraction, left ureteral stent change Type of Anesthesia:: General Specimen's removed: Stone fragments Description of Procedure: The patient is a 49-year-old female who has had 2 procedures performed for a left ureteral stone including a stent insertion and a extracorporal shockwave lithotripsy. On x-ray, the stone remained. She now presents for definitive treatment with laser lithotripsy. Risks benefits and alternatives were discussed with the patient including the risk of anesthesia, bleeding, infection and injury, and she agreed to proceed. This also included the risk of the current public health emergency with COVID-19. The patient was taken to the operating room and placed on the operating room table. Anesthesia monitored the head, neck, airway, IV access and vital signs throughout the case. Once anesthesia was appropriately administered, the patient was placed into dorsal lithotomy position was prepped and draped in usual sterile fashion. A cystourethroscopy was performed through the urethra into the urinary bladder and the left ureteral stent was observed. The distal aspect was already calcified. At this time a 0.035 Glidewire was passed alongside the stent which was then easily removed with graspers. Left ureteroscopy was performed with a semirigid ureteroscope. The stone was easily identified in the upper aspect of the mid ureter. Using a 270 ?m laser fiber, the stone was broken into small fragments. The stone was very hard and the power had to be increased to 0.8 J. At this time, when the stone was broken into small enough pieces, they were grasped with a stone basket and removed without difficulty. Once there were 2 passes made with the basket, the ureter began to have a small amount of bleeding making further visualization difficult. On fluoroscopic evaluation, no further stones were seen. At this time the 0.035 Glidewire was used to reinsert a new 6 Mongolian 24 cm double-J stent. Good curling was achieved in the renal pelvis as well as the urinary bladder. The bladder was emptied and the case was terminated. The patient tolerated the procedure without complication. Stone fragments were sent for evaluation. Patient was taken to the recovery room in good condition. Grafts/Implants Used: 6 x 24 double-J stent - Complications None - Admit VTE Documentation VTE Present on Admission: Yes VTE Mechan Device Prophylaxis: SCD's VTE Pharm Prophylaxis ordered?: No Reason prophylaxis not ordered:: Treatment Not Indicated
--- NOTE | 2019-12-05 08:33 | DCINST_ITS ---
Discharge Diet: Carb Control Diet Discharge Activity: Return to Normal Activity, May not drive while taking narcotic pain medications. Call your doctor if you observe: Fever of 101 or Higher, Inability to urinate, Inability to have a bowel movement, Calf discomfort, Uncontrolled pain Additional Instructions: complete macrobid Allergies/Adverse Reactions: Allergies niacin Allergy (Verified 10/27/19 07:30) Hives Medications to take at Discharge Atorvastatin Calcium [Lipitor] 20 mg PO QHS 10/17/19 Fenofibrate,Micronized [Fenofibrate] 134 mg PO DAILY 10/17/19 Levothyroxine Sodium [Synthroid] 25 mcg PO DAILY 10/17/19 Levothyroxine Sodium [Synthroid] 200 mcg PO DAILY 10/17/19 Lisinopril 20 mg PO DAILY 10/17/19 Metformin HCl 500 mg PO BID 10/17/19 Oxycodone HCl/Acetaminophen [Percocet 5/325] 2 tablet PO Q8H PRN PRN 7 Days #10 tablet 12/05/19 Phenazopyridine HCl [Pyridium] 200 mg PO TID PRN PRN 7 Days #30 tab 12/05/19 The following prescriptions were given: Oxycodone HCl/Acetaminophen [Percocet 5/325] 2 tablet PO Q8H PRN PRN 7 Days #10 tablet PRN Reason: Pain Transmission Status: Sent to [facility] Phenazopyridine HCl [Pyridium] 200 mg PO TID PRN PRN 7 Days #30 tab PRN Reason: Bladder Spasms Transmission Status: Pending to [facility] Primary Care Physician: Citlalli Cox DO [Primary Care Provider] - Test Results: Test results from this visit will be discussed in further detail at your follow- up appointment, if applicable. Please Follow Up With: Snehal Fulton MD - complete macrobid course When: call office for appt for stent removal next week in the office Proposed Discharge Date: 12/05/19
[2019-12-05 08:35] LABS: Bedside Glucose 113 mg/dL (70-110)
== END 2019-12-05 10:07 | disposition home or self-care (01) ==
LOC: SDC 06:04 → AC 06:05
PROVIDERS: PCP Internal Medicine; Referring Provider Urology; Visit Provider Urology
PROC: 0TJ98ZZ Inspection of Ureter, Via Natural or Artificial Opening Endoscopic (ICD-10-PCS; CPT 52352; principal; 2019-12-05 07:20)
DX: N20.1 Calculus of ureter (principal); I10 Essential (primary) hypertension; E78.00 Pure hypercholesterolemia, unspecified; E11.9 Type 2 diabetes mellitus without complications; F17.200 Nicotine dependence, unspecified, uncomplicated; Z79.84 Long term (current) use of oral hypoglycemic drugs; Z79.899 Other long term (current) drug therapy
CPT/HCPCS: 52320; 52356; 76000; 82360; 82962; 88300; J7120; C2617; J2405

== ENCOUNTER 2021-09-26 09:51 | Outpatient (CLI) | payer BC, SELFPAY ==
--- NOTE | 2021-09-26 09:54 | BI_ITS ---
MAMMOGRAPHY - BILATERAL SCREENING REASON FOR EXAM: Female, 51 years old. Routine annual screening examination. PERTINENT HISTORY: Non-contributory. History of remote bilateral excisional breast biopsies. TECHNIQUE: Digital bilateral breast peña (3D mammographic acquisition) in the CC and MLO projections. 2-D mediolateral oblique (MLO) and craniocaudad (CC) views of both breasts were obtained. CAD: Full Field Digital Mammography with Computer Added Detection was performed. COMPARISON: Comparison is made with prior study dated 06/01/2018 and 09/25/2016. FINDINGS: Breast Composition: There are scattered areas of fibroglandular density. There are no dominant masses or suspicious calcifications. Stable benign appearing bilateral axillary lymph nodes. No other significant abnormalities are identified. There has been no significant change since the prior study. BI/SCRN MAMM (CAD)W/PEÑA BILAT IMPRESSION: Stable bilateral screening mammogram. Yearly follow-up mammogram recommended. (A) ASSESSMENT CATEGORY: BIRADS Category 2: Benign. A letter regarding these results will be sent to the patient by the facility within 30 days. Approximately 10% of breast cancers are not detected by mammography. A normal mammogram should not delay biopsy of a clinically suspicious abnormality. [id number] Electronically Signed: Antoni Benites MD at 11:00 EST ,
== END 2021-09-26 23:59 | disposition home or self-care (01) ==
LOC: OPBI 09:53
PROVIDERS: PCP Internal Medicine; Referring Provider Internal Medicine; Visit Provider Internal Medicine
DX: Z12.31 Encounter for screening mammogram for malignant neoplasm of breast (principal)
CPT/HCPCS: 77063; 77067

== ENCOUNTER → 2024-05-25 | Outpatient (CLI) | payer BC, SELFPAY ==
--- NOTE | 2024-05-25 15:35 | BI_ITS ---
MAMMOGRAPHY - BILATERAL SCREENING REASON FOR EXAM: Female, 54 years old. Routine annual screening examination. PERTINENT HISTORY: Non-contributory. Remote bilateral excisional breast biopsies. TECHNIQUE: Digital bilateral breast peña (3D mammographic acquisition) in the CC and MLO projections. 2-D mediolateral oblique (MLO) and craniocaudad (CC) views of both breasts were obtained. CAD: Full Field Digital Mammography with Computer Added Detection was performed. COMPARISON: Comparison is made with prior study dated September 26, 2021 and June 01, 2018. FINDINGS: Breast Composition: There are scattered areas of fibroglandular density. There are no dominant masses or suspicious calcifications. Stable bilateral fat containing axillary lymph nodes. No other significant abnormalities are identified. There has been no significant change since the prior study. BI/SCRN MAMM (CAD)W/PEÑA BILAT IMPRESSION: Stable bilateral screening mammogram. Yearly follow-up mammogram recommended. (A) ASSESSMENT CATEGORY: BIRADS Category 2: Benign. A letter regarding these results will be sent to the patient by the facility within 30 days. Approximately 10% of breast cancers are not detected by mammography. A normal mammogram should not delay biopsy of a clinically suspicious abnormality. [id number] Electronically Signed: Antoni Benites MD at 8:31 EDT ,
== END | disposition home or self-care (01) ==
PROVIDERS: PCP Internal Medicine; Referring Provider Internal Medicine; Visit Provider Internal Medicine
DX: Z12.31 Encounter for screening mammogram for malignant neoplasm of breast (principal)
CPT/HCPCS: 77063; 77067

== ENCOUNTER → 2025-04-03 | Outpatient (CLI) | payer BC, SELFPAY ==
[2025-04-03 10:35] LABS: Cholesterol 167 mg/dL (<=200); Low Density Lipoprotein Calc. 89 mg/dL; Triglycerides 203 mg/dL; Very Low Density Lipoprotein 41 mg/dL (5-40); cholesterol:hdl ratio screen 4.50
== END | disposition home or self-care (01) ==
PROVIDERS: PCP Internal Medicine; Referring Provider Internal Medicine; Visit Provider Internal Medicine
DX: E78.00 Pure hypercholesterolemia, unspecified (principal); R94.6 Abnormal results of thyroid function studies
CPT/HCPCS: 36415; 80061; 84443